=== PATIENT | female | born 1965 | race Caucasian/White ===

== ENCOUNTER → 2022-03-21 | Outpatient (REF) | payer MEDICARE, BC ==
[2022-03-21 18:17] LABS: TOTAL PROTEIN,RANDOM URINE 24.3 MG/DL (0.0-12.0)
== END ==
LOC: M LAB REF 17:16
PROVIDERS: ATTEND Internal Medicine Nephrology
DX: N17.9 Acute kidney failure, unspecified (principal)

== ENCOUNTER → 2022-04-11 | Outpatient (CLI) | payer BC, MEDICARE, OTHER, SELFPAY | LOC: M RAD 10:35 | PROVIDERS: ATTEND Internal Medicine Nephrology | DX: N17.9 Acute kidney failure, unspecified (principal) ==